=== PATIENT | female | born 1945 | race American Indian/Alaskan Native ===

== ENCOUNTER 2018-05-01 07:10 | Day surgery (SDC) | payer MEDICARE ==
[~2018-05-01 07:10] MED LIST: TETRACAINE 0.5% OS SCH
[2018-05-01] MEDS: VIGAMOX OS SCH ×3 (08:37→08:50)
[2018-05-01] MEDS: MYDRIACYL OS SCH ×3 (08:37→08:48)
[2018-05-01] MEDS: AK-Dilate OS SCH ×3 (08:37→08:48)
--- NOTE | 2018-05-01 08:45 | Anesthesia Consultation ---
Anesthesia Consult and Med Hx Date of service: 05/01/18 - Airway Anesthetic Teeth Evaluation: Poor (multiple missing teeth @ the bottom), Dentures (upper) ROM Head & Neck: Adequate Mental/Hyoid Distance: Adequate Mallampati Class: Class II - Pre-Operative Health Status ASA Pre-Surgery Classification: ASA3 Proposed Anesthetic Plan: MAC - Pulmonary Hx Smoking: No Hx Sleep Apnea: No (CHOCO PRE SCREEN LOW RISK.) - Cardiovascular System Hx Hypertension: (X 15 YRS) Hx Coronary Artery Disease: Yes - Central Nervous System CVA: Yes (2015- NO DEFICITS) Hx Back Pain: Yes (WITH ZURDO LEG WEAKNESS- WORSE ON RIGHT) - Endocrine Hx Non-Insulin Dependent Diabetes: Yes - Other Systems Hx Cancer: No
--- NOTE | 2018-05-01 08:46 | Anesthesia Day of Surgery ---
Anesthesia Day of Surgery - Day of Surgery Patient Examined: Yes Patient H&P Reviewed: Yes Patient is NPO: Yes
[2018-05-01] MEDS ORDERED: VERSED ONE (09:16)
[2018-05-01] MEDS ORDERED: SUBLIMAZE ONE (09:16)
[2018-05-01] MEDS ORDERED: PRED FORTE 1% OS SCH (10:00)
[2018-05-01] MEDS ORDERED: DIAMOX PO ONE (10:00)
[2018-05-01] MEDS ORDERED: XYLOCAINE MPF 1% INFILTRATI ONE ×2 (10:16→14:36)
--- NOTE | 2018-05-01 10:25 | Operative Report ---
Operative Report Operative Report: PATIENT'S NAME: DATE OF : DATE OF SURGERY: 05/01/2018 PREOPERATIVE DIAGNOSIS: Cataract left eye POSTOPERATIVE DIAGNOSIS: Same OPERATIVE PROCEDURE: Phacoemulsification with intraocular lens implantation, left eye SURGEON: Lizette Pinto M.D. GUEST ADVISOR SURGEON: Farzad Lens: [id number] 22.0 D ANESTHESIA: Monitored anesthesia care in combination with topical and intracameral anesthesia because of the established specific risk of reflux, arrhythmias, or anxiety attacks associated with ocular manipulation, as well as the difficulty of the american sign language interpreter to manage such potentially catastrophic events while simultaneously attempting to complete the surgical procedure and was deemed necessary for the patient's safety to have an Technology Support Analyst present during the procedure whenever possible. An Technology Support Analyst was utilized to regulate the intravenous sedation of the patient so the patient was cooperative yet not asleep in order for the patient to successfully maintain fixation of the eye on the operating light of the microscope. COMPLICATIONS: Had to remove an [id number] TI well twice because each time he was inserted back haptic was amputated by injector No blood loss. ALLERGIES: No known drug allergies PROGNOSIS: Excellent INDICATIONS FOR SURGERY: The patient is undergoing surgery in the hopes of eliminating or improving these visual difficulties. PROCEDURE: After arriving at the surgery center, the patient was given topical anesthetic and dilating drops, as noted in the record. The patient was then taken into the operating room and given more anesthetic drops. The eyelids, lashes, and lid margins were scrubbed with Betadine solution, and the patient was draped. The Nurse Technology Support Analyst administered IV sedation and monitored the patient during the procedure. The eye was then fixated with a 0.12, and a stab incision was made in the peripheral clear cornea into the anterior chamber. This was made on my left side. Viscoelastic was next used to fill the anterior chamber. The eye was once again fixated with the 0.12 forceps and a keratome was used make an inci kimber in clear cornea peripherally on my right hand side temporally. The capsule forceps were used to open the central anterior capsule and then make a continuous round capsulotomy. Hydrodissection was carried out utilizing a cannula and balanced salt solution to delineate the cortical material from the capsule and the nucleus from the cortical material. The phaco tip was introduced into the eye and used to remove the anterior cortical material in the area of the capsulotomy. Then the phaco tip was buried into the nucleus, and a chopping instrument was introduced into the eye and used to provide countertraction in the nucleus between this instrument and the phaco tip fracturing the nucleus. This procedure was repeated multiple times, providing multiple small segments of the lens, and then the phaco tip was used to remove each of these segments. An I/A tip was then used to remove the remaining cortex. The anterior chamber was refilled with viscoelastic. An one-piece, acrylic intraocular lens was then placed into an inserting cartridge. The tip of the inserting cartridge was introduced into the keratome incision and into the anterior chamber. The implant was gently advanced through the cartridge and into the eye, where it unfolded, and both haptics were placed in the capsular bag, where it centered nicely and appeared to be well fixated. After placement of the intraocular lens, back haptic was noted to be amputated this process was repeated in on repeated and noted that the haptic was actually amputated by the injector that did not posterior lens all the way out . An [id number] was injected then the I~and~A handpiece was placed back into the eye and used to remove the viscoelastic, including viscoelastic that was behind the optic of the intraocular lens. The anterior chamber was then filled with balanced salt solution, and hydration of the wound was used to cause swelling of the wound and more appropriate watertight closure. When the wound was found to be firm, the patient was asked to comment on how bright the light was. If there was no light perception at all or if the light was substantially dimmer than during the rest of the surgery, the amount of fluid in the eye was decompressed to lower the intraocular pressure until the patient could see the bright light again. This was done to avoid any damage or decreased blood flow to the optic nerve. MEDICATIONS APPLIED AT END OF SURGERY: One drop of Pred Forte and Vigamox The patient was given a shield to wear at night and was instructed not to rub or push on the eye. DISCHARGE SUMMARY: The patient was released in stable condition. The patient and those with the patient were given a written sheet of postoperative instructions and counseling on any abnormal laboratory studies. The patient is to see us tomorrow for follow-up in the office and is to call immediately for any difficulties. Kristopher Browning
--- NOTE | 2018-05-01 10:27 | Short Stay Summary ---
Short Stay Documentation Date of service: 05/01/18 - History H&P: obtained from office - Allergies and Medications Current Medications: Allergies No Known Allergies Allergy (Verified 04/16/18 14:58) Home Medications Medication Instructions Recorded Confirmed Last Taken Type Aspirin [Aspirin TAB] 325 mg PO QDAY 04/16/18 04/28/18 04/17/18 05:00 History Ca/D3/Mag Ox/Zinc/Geology Professor/Jaron/Bor 2 tab PO DAILY 04/16/18 04/28/18 04/16/18 09:00 History [Calcium 600+D3 Plus Caplet] Carvedilol [Coreg] 6.25 mg PO BID 04/16/18 04/28/18 04/17/18 05:00 History Chlorthalidone [Thalitone] 25 mg PO QDAY 04/16/18 04/28/18 04/16/18 09:00 History Cholecalciferol (Vitamin D3) 2,000 unit PO DAILY 04/16/18 04/28/18 04/16/18 09:00 History [Vitamin D3] Ezetimibe [Zetia] 10 mg PO QDAY 04/16/18 04/28/18 04/17/18 05:00 History Gabapentin [Neurontin] 100 mg PO BID 04/16/18 04/28/18 04/16/18 17:00 History Gabapentin [Neurontin] 300 mg PO QHS 04/16/18 04/28/18 Unknown History Insulin Aspart [NovoLOG Flexpen] 7 units SQ TID 04/16/18 04/28/18 Unknown History Insulin Detemir [Levemir Flextouch] 20 unit SQ QHS 04/16/18 04/28/18 04/16/18 20:00 History Levocetirizine Dihydrochloride 5 mg PO QHS 04/16/18 04/28/18 04/16/18 21:00 History [Xyzal] Lisinopril [Zestril] 40 mg PO DAILY 04/16/18 04/28/18 04/17/18 05:00 History Rosuvastatin Calcium [Crestor] 40 mg PO DAILY 04/16/18 04/28/18 04/17/18 05:00 History Spironolactone [Aldactone] 25 mg PO QDAY 04/16/18 04/28/18 04/17/18 05:00 History amLODIPine [Norvasc] 10 mg PO DAILY 04/16/18 04/28/18 04/17/18 05:00 History metFORMIN [Glucophage] 500 mg PO BID 04/16/18 04/28/18 04/16/18 17:00 History Active Medications Moxifloxacin HCl (Vigamox) 1 drops OS Q5MIN AMELIA Stop: 05/03/18 06:01 Phenylephrine HCl (Ak-Dilate) 1 drops OS Q5MIN AMELIA Stop: 05/03/18 06:01 Prednisolone Acetate (Pred Forte 1%) 1 drops OS QID AMELIA Tetracaine HCl (Tetracaine 0.5%) 1 drops OS ONCE AMELIA Tropicamide (Mydriacyl) 1 drops OS Q5MIN AMELIA Stop: 05/03/18 06:01 - Brief post op/procedure progress note Date of procedure: 05/01/18 Pre-op diagnosis: cataract left eye Post-op diagnosis: same Procedure: Phacoemulsification with intraocular lens insertion left eye. Removal of broken IOL left eye 2 Anesthesia: MAC, local Surgeon: DANYELLE AYALA Estimated blood loss: minimal Pathology: none Condition: stable - Disposition Condition at discharge: Good Disposition: DC-01 TO HOME OR SELFCARE - Discharge Diagnoses (1) Cortical age-related cataract of left eye Status: Resolved Short Stay Discharge Plan Additional Instructions: FOLLOW SURGEON INSTRUCTION SHEETS. Follow up with: CAT ELLISON MD [Primary Care Provider] - 7 Days Forms: Outpatient Surgery [place] Inst.
--- NOTE | 2018-05-01 10:31 | Short Stay Summary ---
Short Stay Documentation Date of service: 05/01/18 - History H&P: obtained from office - Allergies and Medications Current Medications: Allergies No Known Allergies Allergy (Verified 04/16/18 14:58) Home Medications Medication Instructions Recorded Confirmed Last Taken Type Aspirin [Aspirin TAB] 325 mg PO QDAY 04/16/18 04/28/18 04/17/18 05:00 History Ca/D3/Mag Ox/Zinc/Electronic Security Technician/Jaron/Bor 2 tab PO DAILY 04/16/18 04/28/18 04/16/18 09:00 History [Calcium 600+D3 Plus Caplet] Carvedilol [Coreg] 6.25 mg PO BID 04/16/18 04/28/18 04/17/18 05:00 History Chlorthalidone [Thalitone] 25 mg PO QDAY 04/16/18 04/28/18 04/16/18 09:00 History Cholecalciferol (Vitamin D3) 2,000 unit PO DAILY 04/16/18 04/28/18 04/16/18 09:00 History [Vitamin D3] Ezetimibe [Zetia] 10 mg PO QDAY 04/16/18 04/28/18 04/17/18 05:00 History Gabapentin [Neurontin] 100 mg PO BID 04/16/18 04/28/18 04/16/18 17:00 History Gabapentin [Neurontin] 300 mg PO QHS 04/16/18 04/28/18 Unknown History Insulin Aspart [NovoLOG Flexpen] 7 units SQ TID 04/16/18 04/28/18 Unknown History Insulin Detemir [Levemir Flextouch] 20 unit SQ QHS 04/16/18 04/28/18 04/16/18 20:00 History Levocetirizine Dihydrochloride 5 mg PO QHS 04/16/18 04/28/18 04/16/18 21:00 History [Xyzal] Lisinopril [Zestril] 40 mg PO DAILY 04/16/18 04/28/18 04/17/18 05:00 History Rosuvastatin Calcium [Crestor] 40 mg PO DAILY 04/16/18 04/28/18 04/17/18 05:00 History Spironolactone [Aldactone] 25 mg PO QDAY 04/16/18 04/28/18 04/17/18 05:00 History amLODIPine [Norvasc] 10 mg PO DAILY 04/16/18 04/28/18 04/17/18 05:00 History metFORMIN [Glucophage] 500 mg PO BID 04/16/18 04/28/18 04/16/18 17:00 History Active Medications Moxifloxacin HCl (Vigamox) 1 drops OS Q5MIN AMELIA Stop: 05/03/18 06:01 Phenylephrine HCl (Ak-Dilate) 1 drops OS Q5MIN AMELIA Stop: 05/03/18 06:01 Prednisolone Acetate (Pred Forte 1%) 1 drops OS QID AMELIA Tetracaine HCl (Tetracaine 0.5%) 1 drops OS ONCE AMELIA Tropicamide (Mydriacyl) 1 drops OS Q5MIN AMELIA Stop: 05/03/18 06:01 - Brief post op/procedure progress note Date of procedure: 05/01/18 Pre-op diagnosis: left cataract Post-op diagnosis: other (left cataract and mechanical complication of an intraocular lens left eye) Anesthesia: MAC, local Surgeon: DANYELLE AYALA Estimated blood loss: minimal Pathology: none Condition: stable - Disposition Condition at discharge: Good Disposition: DC-01 TO HOME OR SELFCARE - Discharge Diagnoses (1) Cortical age-related cataract of left eye Status: Resolved (2) Mechanical complication due to intraocular lens implant Status: Acute Qualifiers: Encounter type: sequela Qualified Code(s): T85.29XS - Other mechanical complication of intraocular lens, sequela Short Stay Discharge Plan Additional Instructions: FOLLOW SURGEON INSTRUCTION SHEETS. Follow up with: CAT ELLISON MD [Primary Care Provider] - 7 Days Forms: Outpatient Surgery [place] Inst.
--- NOTE | 2018-05-01 12:34 | Post Anesthesia Evaluation ---
- Post Anesthesia Evaluation Patient Participated: Yes Airway Patent: Yes Stable Respiratory Function: Yes Nausea/Vomiting: No Temp > 96.8F: Yes Pain Manageable: Yes Adequeate Hydration: Yes Anesthesia Complications: No
[2018-05-01 15:49] VITALS: BP 136/68
== END 2018-05-01 11:02 | disposition home or self-care (01) ==
LOC: OR 07:10
DX: H25.012 Cortical age-related cataract, left eye (principal); H11.001 Unspecified pterygium of right eye; I25.10 Atherosclerotic heart disease of native coronary artery without angina pectoris; E78.00 Pure hypercholesterolemia, unspecified; I10 Essential (primary) hypertension; K21.9 Gastro-esophageal reflux disease without esophagitis; E11.9 Type 2 diabetes mellitus without complications; Z79.899 Other long term (current) drug therapy; Z79.4 Long term (current) use of insulin; Z79.82 Long term (current) use of aspirin; Z79.01 Long term (current) use of anticoagulants; Z79.84 Long term (current) use of oral hypoglycemic drugs; Z98.49 Cataract extraction status, unspecified eye; Z90.710 Acquired absence of both cervix and uterus; Z86.73 Personal history of transient ischemic attack (TIA), and cerebral infarction without residual deficits
CPT/HCPCS: 66984; 82962; J2250; J3010; V2632